=== PATIENT | female | born 1990 | race African-American/Black ===

== ENCOUNTER 2016-11-30 13:16 | Emergency (ER) | payer BC, MEDICAID ==
[~2016-11-30] VITALS: Ht 160 cm; Wt 52.2 kg
[~2016-11-30 13:16] MED LIST: ATIVAN0.5 MG ORAL; IBUPROFEN800 MG PO; MYLANTA30 M1 GT; NKM; NORCO 5-325 TA1 EACH ORAL; OMEPRAZOLE40 M1 ORAL; PREDNISONE20 MG ORAL
[2016-11-30 14:21] LABS: APPEARANCE,URINE CLEAR; KETONES,URINE NEGATIVE (NEGATIVE); LEUKOCYTE ESTERASE ,URINE 1+ (NEGATIVE); NITRITE,URINE NEGATIVE (NEGATIVE); PH,URINE 6.5 (4.5-8.0); PROTEIN,URINE NEGATIVE (NEGATIVE); UROBILINOGEN,URINE NORMAL MG/DL (0.0-1.0)
[2016-11-30 14:30] LABS: BACTERIA,URINE FEW /HPF; RBC,URINE 0-2 /HPF (0 - 2); SQUAMOUS EPITHELIAL CELL,UR FEW /LPF (NONE/OCC)
[2016-11-30 14:31] LABS: MUCUS,URINE FEW /LPF (NONE/OCC)
--- NOTE | 2016-11-30 14:54 | Emergency Room Report ---
History of Present Illness General Chief Complaint: Pelvic Pain Source: Patient Present Illness HPI 25-year-old female presents ED complaining of lower pelvic pain in back pain. States that her last 4 years she has had right lower pelvic pain ever since having a . States the pain is intermittent and comes and goes. Was told that everything was okay in the past. Pain is currently throbbing, 8/10. Nonradiating. Patient also complaining of some back pain x 3 days. denies trauma. 7/10 back pain, throbbing, radiating down the right leg. Denies any motor or leg weakness. Denies any bowel or bladder incontinence. No other aggravating relieving factors. Denies any other assocaited symptoms Allergies: Coded Allergies: No Known Allergies (Unverified , 04/26/13) Patient History Past Medical History: asthma, GERD Past Surgical History: none Pertinent Family History: none Social History: Denies: alcohol use, drug use, smoking Last Menstrual Period: 11/18/16 Now: No Immunizations: UTD Reviewed Nursing Documentation: PMH: Agreed, PSxH: Agreed Nursing Documentation-PMH Past Medical History: No History, Except For Hx Asthma: Yes Hx Gastrointestinal Problems: Yes - heartburn Review of Systems All Other Systems: negative except mentioned in HPI Physical Exam Vital Signs Date Time Temp Pulse Resp B/P Pulse Ox O2 Delivery O2 Flow Rate FiO2 11/30/16 13:47 98.2 77 16 118/71 100 Room Air Sp02 EP Interpretation: reviewed, normal General Appearance: no apparent distress, alert, GCS 15, non-toxic Head: normocephalic Eyes: bilateral eye PERRL, bilateral eye normal inspection ENT: normal ENT inspection Neck: normal inspection Respiratory: normal inspection Cardiovascular #1: normal inspection Gastrointestinal: normal bowel sounds, soft, non-distended, no guarding, no rebound Rectal: deferred Genitourinary: no CVA tenderness Musculoskeletal: other - paraspinal lumbar tenderness Neurologic: alert, oriented x3, responsive, motor strength/tone normal, sensory intact, speech normal Psychiatric: normal inspection Skin: normal inspection Lymphatic: normal inspection Medical Decision Making Diagnostic Impression: Primary Impression: Ovarian cyst ER Course Hospital Course 25-year-old F presents to ED with R adnexal pain Differential diagnosis includes- cystitis, UTI, constipation, ovarian cyst/ torsion Clinical course Patient placed on stretcher. After initial history and physical I ordered UA, Pelvic US Labs - UA unremarkable (-) Pelvic US - bilateral ovarian cyst, + free fluid. good flow to ovary noted Reassurance given to patient. will give referral to OBGYN I feel this is a highly complex case requiring extensive working including EKG/ Rhythm strip, Xray/CT/US, Blood/urine lab work, repeat exams while in ED, and administration of strong opiates/narcotics for pain control, admission to hospital or close patient follow up. Diagnosis - ovarian cyst Stable and discharged to home with Rx Motrin. Followup with OBGYN. Return to ED if symptoms recur or worsen Labs Test 11/30/16 14:00 Urine Color Pale yellow Urine Appearance Clear Urine pH 6.5 (4.5-8.0) Urine Specific [place] 1.015 (1.005-1.035) Urine Protein Negative (NEGATIVE) Urine Glucose (UA) Negative (NEGATIVE) Urine Ketones Negative (NEGATIVE) Urine Occult Blood Negative (NEGATIVE) Urine Nitrite Negative (NEGATIVE) Urine Bilirubin Negative (NEGATIVE) Urine Urobilinogen Normal MG/DL (0.0-1.0) Urine Leukocyte Esterase 1+ (NEGATIVE) Urine RBC 0-2 /HPF (0 - 2) Urine WBC 2-4 /HPF (0 - 2) Urine Squamous Epithelial Cells Few /LPF (NONE/OCC) Urine Bacteria Few /HPF (NONE) Urine Mucus Few /LPF (NONE/OCC) Urine HCG, Qualitative Negative CT/MRI/US Diagnostic Results CT/MRI/US Diagnostic Results : Imaging Test Ordered: Pelvic US Impression bilateral ovarian cysts. free fluid noted. good blood flow to both ovaries Last Vital Signs Date Time Temp Pulse Resp B/P Pulse Ox O2 Delivery O2 Flow Rate FiO2 11/30/16 13:47 98.2 77 16 118/71 100 Room Air Status: improved Disposition: HOME, SELF-CARE Condition: Stable Scripts Ibuprofen* (MOTRIN*) 600 Mg Tablet 600 MG ORAL Q8H Y for For Pain, #30 TAB 0 Refills Prov: JAMIE LEOS M.D. 11/30/16 Referrals: [facility]/,REFERRING (PCP) JAMIE LEOS M.D. November 30, 2016 14:54
[2016-11-30 15:30] VITALS: BP 121/73
[2016-11-30] MEDS ORDERED: IBUPROFEN600 MG ORAL (15:36)
[2016-11-30 15:43] VITALS: BP 121/73
--- NOTE | 2016-12-01 10:45 | Diagnostic Imaging Report ---
Indication: ABD PAIN, right lower quadrant pain, negative urine test Technique: Transabdominal and transvaginal Comparison: None Findings: Uterus measures 7.4 cm length by 3.5 cm AP. Endometrium measures 8 mm thick. No myometrial abnormality. Right ovary measures 2.4 cm length. Left ovary 3.3 cm length. Dominant follicle is seen on both sides. No adnexal mass. Small amount of free cul-de-sac fluid is noted. Impression: Essentially unremarkable exam. Small amount of free cul-de-sac fluid is presumed physiologic
== END 2016-11-30 15:43 | disposition home or self-care (01) ==
LOC: EMR 14:15
DX: N83.202 Unspecified ovarian cyst, left side (principal); N83.201 Unspecified ovarian cyst, right side; R10.2 Pelvic and perineal pain; J45.909 Unspecified asthma, uncomplicated; K21.9 Gastro-esophageal reflux disease without esophagitis; R12 Heartburn
CPT/HCPCS: 76830; 76856; 81003; 81025; 99283

== ENCOUNTER 2019-02-02 07:00 | Emergency (ER) | payer BC, MEDICAID ==
[~2019-02-02] VITALS: Ht 160 cm; Wt 54.4 kg
[~2019-02-02 07:00] MED LIST changes: +IBUPROFEN600 MG ORAL
[2019-02-02 07:10] VITALS: BP 114/69
--- NOTE | 2019-02-02 07:10 | NUR ---
ED Nurse Note: pt walked in to ED due to asthma attack since yesterday. dry cough noted. per pt, inhaler did not help. no fever or chills reported. respirations even and non-labored noted. muscle pain c/o when she cough. wheezing noted on upper lobes. on vascular specialists. skin warm to touch. no open wound noted. will wait for the further order.
[2019-02-02] MEDS ORDERED: ALBUTEROL2.5 MG/3 M INH (07:14)
[2019-02-02] MEDS ORDERED: Solu-MEDROL 125mg Inj IVP ONE (07:15)
[2019-02-02] MEDS ORDERED: ALBUTEROL SULF8.5 GM INH (07:17)
[2019-02-02] MEDS ORDERED: PREDNISONE20 MG ORAL (07:17)
--- NOTE | 2019-02-02 07:17 | Emergency Room Report ---
History of Present Illness General Chief Complaint: Asthma Source: Patient Present Illness HPI 28-year-old female history of asthma, presents with shortness of breath, wheezing started 1 day prior to arrival, no aggravating factors, alleviated by her inhaler, no chest pain, no abdominal pain, no fever no chills, she does endorse a cough, no dysuria, patient presents for evaluation severity is moderate Allergies: Coded Allergies: No Known Allergies (Unverified , 04/26/13) Patient History Past Medical History: see triage record Last Menstrual Period: 01/06/19 Now: No Reviewed Nursing Documentation: PMH: Agreed; PSxH: Agreed Nursing Documentation-PMH Hx Asthma: Yes Hx Gastrointestinal Problems: Yes - heartburn Review of Systems Constitutional: Denies: chills, fever Eye: Denies: blurred vision, double vision ENT: Denies: throat pain, nasal discharge Respiratory: Reports: cough, shortness of breath, wheezing Cardiovascular: Denies: chest pain, palpitations Gastrointestinal: Denies: abdominal pain, diarrhea, nausea, vomiting Genitourinary: Denies: dysuria, pain Musculoskeletal: Denies: back pain, muscle pain Skin: Denies: rash, lesions Neurological: Denies: headache, focal weakness Hematologic/Lymphatic: Denies: easy bleeding, easy bruising All Other Systems: negative except mentioned in HPI Physical Exam Vital Signs Date Time Temp Pulse Resp B/P (MAP) Pulse Ox O2 Delivery O2 Flow Rate FiO2 02/02/19 07:08 98.2 102 21 112/72 (85) 99 Room Air Sp02 EP Interpretation: reviewed, normal General Appearance: well appearing, no apparent distress, alert Head: normocephalic, atraumatic Eyes: bilateral eye PERRL, bilateral eye EOMI ENT: uvula midline, moist mucus membranes Neck: supple, thyroid normal, supple/symm/no masses Respiratory: lungs clear, no retraction, no accessory muscle use, wheezing - moderate Cardiovascular #1: normal peripheral pulses, regular rate, rhythm, no edema, no gallop, no murmur Gastrointestinal: non tender, soft, no guarding, no rebound Musculoskeletal: normal inspection Neurologic: alert, oriented x3 Psychiatric: mood/affect normal Skin: no rash, warm/dry Medical Decision Making Diagnostic Impression: Primary Impression: Asthma attack Additional Impression: Asthma exacerbation ER Course 28-year-old female presents with acute asthma exacerbation, steroids given, fluids given, magnesium given, patient improved significantly, reevaluation 7: 50 AM. Will disposition patient home with return precautions steroids Follow up with PCP, Rhythm Strip Diag. Results Rhythm Strip Time: 08:00 EP Interpretation: yes Rate: 67 Rhythm: NSR, no PVC's, no ectopy Chest X-Ray Diagnostic Results Chest X-Ray Diagnostic Results : Chest X-Ray Ordered: Yes # of Views/Limited/Complete: 1 View Indication: Shortness of Breath EP Interpretation: Yes Interpretation: no consolidation, no effusion, no pneumothorax, no acute cardiopulmonary disease Impression: No acute disease Electronically Signed by: Nguyễn Ta MD Last Vital Signs Date Time Temp Pulse Resp B/P (MAP) Pulse Ox O2 Delivery O2 Flow Rate FiO2 02/02/19 07:08 98.2 102 21 112/72 (85) 99 Room Air Disposition: HOME, SELF-CARE Condition: Stable Scripts Albuterol Sulfate* (ALBUTEROL SULFATE MDI*) 8.5 Gm Hfa.aer.ad 2 PUFF INH Q4H PRN for cough/wheezing, #1 EA 0 Refills Prov: Nguyễn Ta MD 02/02/19 Prednisone* (PREDNISONE*) 20 Mg Tablet 40 MG ORAL DAILY, #8 TAB Prov: Nguyễn Ta MD 02/02/19 Referrals: [facility] Patient Instructions: Asthma, Adult Additional Instructions: The patient was provided with discharge instructions, notified to follow-up with a primary care doctor and or specialist in the next 24-48 hours, and to return to the ED if they have worsening of their symptoms. Please note that this report is being documented using in3Dgallery technology. This can lead to erroneous entry secondary to incorrect interpretation by the dictating instrument. Nguyễn Ta MD Feb 02, 2019 07:17
[2019-02-02] MEDS: Albuterol ud Inhalation HHN SCH ×3 (07:31→08:03)
[2019-02-02] MEDS: Ipratropium 0.02% Inh Soln 2.5ml UD HHN SCH ×3 (07:31→08:03)
--- NOTE | 2019-02-02 07:46 | NUR ---
ED Nurse Note: Received verbal order from Dr Ta to run Magnesium 2g over 30 minutes. DOUGLAS Toure notified.
--- NOTE | 2019-02-02 08:28 | NUR ---
ED Nurse Note: will discharge pt after urine sample collect.
[2019-02-02 08:51] VITALS: BP 108/71
--- NOTE | 2019-02-02 08:52 | NUR ---
ER DISCHARGE NOTE: Patient is cleared to be discharged per ERMD, pt is aox4, on room air, with stable vital signs. pt was given dc and prescription instructions, pt was able to verbalize understanding, pt id band and iv site removed without complications. pt is able to ambulate with steady gait. pt took all belongings.
--- NOTE | 2019-02-02 09:03 | Diagnostic Imaging Report ---
Indication: Cough Technique: One view of the chest Comparison: 05/05/2010 Findings: Lungs and pleural spaces are clear. Heart size is normal. 6 no significant interim change Impression: No acute process
== END 2019-02-02 08:53 | disposition home or self-care (01) ==
LOC: EMR 07:15
DX: J45.901 Unspecified asthma with (acute) exacerbation (principal)
CPT/HCPCS: 71045; 81025; 94640; 94664; 96365; 96366; 96375; 99284; J2930

== ENCOUNTER 2019-03-28 13:19 | Emergency (ER) | payer MEDICAID ==
[~2019-03-28] VITALS: Ht 160 cm; Wt 50.8 kg
[~2019-03-28 13:19] MED LIST changes: +ALBUTEROL SULF8.5 GM INH; +ALBUTEROL2.5 MG/3 M INH; +ATROVENT HFA12.9 GM IH
[2019-03-28 13:45] VITALS: BP 120/76
--- NOTE | 2019-03-28 13:45 | NUR ---
ED Nurse Note: Pt is AAOx4, vss with no acute distress. Pt c/o unable to hold down any foods today. Pt visited here last night for asthma with c/o bad headache. Pt states her breathing also feels uncomfortable.
--- NOTE | 2019-03-28 14:05 | Emergency Room Report ---
History of Present Illness General Chief Complaint: Nausea Source: Patient Present Illness HPI Disclaimer: Please note that this report is being documented using DRAGON technology. This can lead to erroneous entry secondary to incorrect interpretation by the dictating instrument. HPI: 28-year-old female with a history of asthma presents for evaluation of abdominal pain and vomiting. Symptoms have been present probably 1 day. She was seen in the emergency department last night for an asthma exacerbation and discharged home with an albuterol inhaler and prednisone. This morning, she began to experience significant vomiting, nonbilious. She notes some blood- streaked mucus but no mauricio hemoptysis. Denies any fevers, chills, URI symptoms. Has a persistent cough and wheezing. She has not been able to take her prednisone this morning as she has not been able to hold anything down. She believes the blood in the mucus may also be from a nosebleed she had earlier this morning which is now resolved. She has chronic nosebleeds and follows with ENT. Denies any lower pelvic pain, dysuria, hematuria, vaginal bleeding, vaginal discharge. LMP 3 weeks ago. Denies abdominal pain when she is not vomiting. PMH: Asthma PSH: Denies Allergies: None Social Hx: Smokes marijuana Allergies: Coded Allergies: No Known Allergies (Unverified , 04/26/13) Patient History Last Menstrual Period: 9-5 Now: No Nursing Documentation-PMH Past Medical History: No History, Except For Hx Asthma: Yes Hx Gastrointestinal Problems: Yes - heartburn Review of Systems All Other Systems: negative except mentioned in HPI Physical Exam Vital Signs Date Time Temp Pulse Resp B/P (MAP) Pulse Ox O2 Delivery O2 Flow Rate FiO2 03/28/19 13:26 97.2 88 20 113/79 (90) 88 Room Air General: Awake and alert, no acute distress HEENT: NC/AT. EOMI. mucous membranes Cardiovascular: RRR. S1 and S2 normal. No murmur appreciated Resp: Normal work of breathing. Intermittent cough. Scattered wheezes bilaterally. No crackles. Abdomen: Abdomen is soft, nondistended. Nontender, no masses, no rebound Skin: Intact. No abrasions, laceration or rash over the exposed skin MSK: Normal tone and bulk. Moving all extremities. No obvious deformity. Neuro: Awake and alert. Mentating appropriately. Medical Decision Making Diagnostic Impression: Primary Impression: Nausea and vomiting in adult patient Additional Impression: Dehydration ER Course 28-year-old female presents for evaluation of nausea and vomiting since last night. Differential includes was not limited to gastritis, viral syndrome, URI , cholecystitis, pancreatitis, appendicitis, urinary tract infection, pyelonephritis. Likely, this is a viral syndrome given her prodrome of cough in the setting of a recent asthma exacerbation. Overall, she is well-appearing with stable vital signs. We will start IV fluids, check screening labs and provide antiemetics. She continues to have some bilateral wheezing but is declined a breathing treatment at this time thinking that is making her throw up. Disposition depending on patient improvement in lab results. Laboratory Tests Test 03/28/19 14:15 03/28/19 14:30 White Blood Count 13.5 K/UL (4.8-10.8) H Red Blood Count 5.08 M/UL (4.20-5.40) Hemoglobin 14.6 G/DL (12.0-16.0) Hematocrit 43.3 % (37.0-47.0) Mean Corpuscular Volume 85 FL (80-99) Mean Corpuscular Hemoglobin 28.6 PG (27.0-31.0) Mean Corpuscular Hemoglobin Concent 33.6 G/DL (32.0-36.0) Red Cell Distribution Width 12.0 % (11.6-14.8) Platelet Count 217 K/UL (150-450) Mean Platelet Volume 8.8 FL (6.5-10.1) Neutrophils (%) (Auto) % (45.0-75.0) Lymphocytes (%) (Auto) % (20.0-45.0) Monocytes (%) (Auto) % (1.0-10.0) Eosinophils (%) (Auto) % (0.0-3.0) Basophils (%) (Auto) % (0.0-2.0) Neutrophils % (Manual) Pending Lymphocytes % (Manual) Pending Platelet Estimate Pending Platelet Morphology Pending Sodium Level 140 MMOL/L (136-145) Potassium Level 3.6 MMOL/L (3.5-5.1) Chloride Level 105 MMOL/L (98-107) Carbon Dioxide Level 22 MMOL/L (21-32) Anion Gap 13 mmol/L (5-15) Blood Urea Nitrogen 11 mg/dL (7-18) Creatinine 0.5 MG/DL (0.55-1.30) L Estimate Glomerular Filtration Rate > 60 mL/min (>60) Glucose Level 90 MG/DL (74-106) Calcium Level 9.4 MG/DL (8.5-10.1) Total Bilirubin 0.4 MG/DL (0.2-1.0) Aspartate Amino Transferase (AST) 12 U/L (15-37) L Alanine Aminotransferase (ALT) 15 U/L (12-78) Alkaline Phosphatase 50 U/L (46-116) Total Protein 8.3 G/DL (6.4-8.2) H Albumin 4.2 G/DL (3.4-5.0) Globulin 4.1 g/dL Albumin/Globulin Ratio 1.0 (1.0-2.7) Lipase 134 U/L (73-393) Urine Color Yellow Urine Appearance Slightly cloudy Urine pH 6 (4.5-8.0) Urine Specific [place] 1.020 (1.005-1.035) Urine Protein 2+ (NEGATIVE) H Urine Glucose (UA) Negative (NEGATIVE) Urine Ketones 4+ (NEGATIVE) H Urine Blood Negative (NEGATIVE) Urine Nitrite Negative (NEGATIVE) Urine Bilirubin Negative (NEGATIVE) Urine Urobilinogen Normal MG/DL (0.0-1.0) Urine Leukocyte Esterase 1+ (NEGATIVE) H Urine RBC 0-2 /HPF (0 - 2) Urine WBC 2-4 /HPF (0 - 2) Urine Squamous Epithelial Cells Few /LPF (NONE/OCC) Urine Bacteria Few /HPF (NONE) Urine Mucus Moderate /LPF (NONE/OCC) H Urine HCG, Qualitative Negative (NEGATIVE) Reevaluation Time: 15:58 Last Vital Signs Date Time Temp Pulse Resp B/P (MAP) Pulse Ox O2 Delivery O2 Flow Rate FiO2 03/28/19 13:45 98.0 67 18 120/76 97 Room Air Status: improved Reevaluation Impression Labs within normal limits. Ketones in the urine to suggest mild dehydration but no kidney injury and no electrolyte abnormalities. The patient has had no further nausea or vomiting in the emergency department since being treated with Zofran. Will discharge with ODT Zofran and follow-up with her PMD. Discussed reasons to return to the emergency department. She understands and agrees with this treatment plan. Disposition: HOME, SELF-CARE Condition: Improved Scripts Ondansetron Odt* (ZOFRAN ODT*) 4 Mg Tab.rapdis 4 MG BC EVERY 6 HOURS PRN for Nausea & Vomiting, #20 TAB 0 Refills Prov: Adrian Gannon MD 03/28/19 Referrals: [facility],REFERRING (PCP) Adrian Gannon MD Mar 28, 2019 14:05
[2019-03-28 14:48] LABS: APPEARANCE,URINE SLIGHTLY CLOUDY; BILIRUBIN, URINE NEGATIVE (NEGATIVE); GLUCOSE, URINE (UA) NEGATIVE (NEGATIVE); KETONES,URINE 4+ (NEGATIVE); LEUKOCYTE ESTERASE ,URINE 1+ (NEGATIVE); NITRITE,URINE NEGATIVE (NEGATIVE); PH,URINE 6 (4.5-8.0); PROTEIN,URINE 2+ (NEGATIVE); UROBILINOGEN,URINE NORMAL MG/DL (0.0-1.0)
[2019-03-28 14:48] LABS: HEMATOCRIT 43.3 % (37.0-47.0); HEMOGLOBIN 14.6 G/DL (12.0-16.0); MEAN CORPUSCULAR VOLUME 85 FL (80-99); PLATELET COUNT 217 K/UL (150-450); RED BLOOD COUNT 5.08 M/UL (4.20-5.40); WHITE BLOOD COUNT 13.5 K/UL (4.8-10.8)
--- NOTE | 2019-03-28 14:56 | NUR ---
ED Nurse Note: Pt states pain is 0/10 and pt states is no longer nauseous.
[2019-03-28 14:58] LABS: COLOR,URINE YELLOW
[2019-03-28 15:08] LABS: ANION GAP 13 mmol/L (5-15); BLOOD UREA NITROGEN 11 mg/dL (7-18); CALCIUM 9.4 MG/DL (8.5-10.1); CARBON DIOXIDE 22 MMOL/L (21-32); CHLORIDE 105 MMOL/L (98-107); CREATININE 0.5 MG/DL (0.55-1.30); POTASSIUM 3.6 MMOL/L (3.5-5.1); SODIUM 140 MMOL/L (136-145)
[2019-03-28 15:15] LABS: ALANINE AMINOTRANSFERASE 15 U/L (12-78); ALBUMIN 4.2 G/DL (3.4-5.0); ALKALINE PHOSPHATASE 50 U/L (46-116); ASPARTATE AMINO TRANSFERASE 12 U/L (15-37); BILIRUBIN,TOTAL 0.4 MG/DL (0.2-1.0)
[2019-03-28] MEDS ORDERED: ONDANSETRON ODT4 MG BC (15:57)
[2019-03-28 16:09] VITALS: BP 122/78
--- NOTE | 2019-03-28 16:09 | NUR ---
ER DISCHARGE NOTE: Patient is cleared to be discharged per ERMD, pt is aox4, on room air, with stable vital signs. pt was given dc and prescription instructions, pt was able to verbalize understanding, pt id band and iv site removed without complications. pt is able to ambulate with steady gait. pt took all belongings. Pt is stable and condition improved.
== END 2019-03-28 16:09 | disposition home or self-care (01) ==
LOC: EMR 13:49
DX: E86.0 Dehydration (principal); R11.2 Nausea with vomiting, unspecified; J45.909 Unspecified asthma, uncomplicated
CPT/HCPCS: 36415; 80053; 81003; 81025; 83690; 85007; 85025; 96361; 96374; J2405; Z7502; 99284

== ENCOUNTER 2019-06-26 05:33 | Emergency (ER) | payer MEDICAID ==
[~2019-06-26] VITALS: Ht 160 cm; Wt 54.0 kg
[~2019-06-26 05:33] MED LIST changes: +ONDANSETRON ODT4 MG BC
[2019-06-26] MEDS ORDERED: Albuterol ud Inhalation HHN ONE (05:45)
[2019-06-26] MEDS ORDERED: Ipratropium 0.02% Inh Soln 2.5ml UD HHN ONE ×2 (05:45→07:00)
--- NOTE | 2019-06-26 05:47 | Emergency Room Report ---
History of Present Illness General Chief Complaint: To Be Triaged Source: Patient Present Illness HPI This is a 28-year-old female with poorly controlled asthma. She presents with asthma exacerbation. She woke up with shortness of breath. Wheezing. Coughing. Worse with exertion. Better with rest. Her inhalers not helping. She usually comes to the hospital every few months. No intubation. Allergies: Coded Allergies: No Known Allergies (Unverified , 04/26/13) Patient History Past Medical History: see triage record, old chart reviewed Past Surgical History: none Pertinent Family History: none Social History: Denies: smoking Now: No Immunizations: other Reviewed Nursing Documentation: PMH: Agreed; PSxH: Agreed Nursing Documentation-PMH Hx Asthma: Yes Hx Gastrointestinal Problems: Yes - heartburn Review of Systems Eye: Denies: eye pain, blurred vision ENT: Denies: ear pain, nose congestion, throat swelling Respiratory: Reports: cough, shortness of breath, wheezing Cardiovascular: Denies: chest pain, palpitations Gastrointestinal: Denies: abdominal pain, diarrhea, nausea, vomiting Musculoskeletal: Denies: back pain, joint pain Skin: Denies: rash Neurological: Denies: headache, numbness Endocrine: Denies: increased thirst, increased urine Hematologic/Lymphatic: Denies: easy bruising All Other Systems: negative except mentioned in HPI Physical Exam Vitals with tachycardia Sp02 EP Interpretation: reviewed, normal General Appearance: well appearing, no apparent distress, alert Head: normocephalic, atraumatic Eyes: bilateral eye PERRL, bilateral eye EOMI ENT: hearing grossly normal, normal pharynx Neck: full range of motion, supple, no meningismus Respiratory: chest non-tender, respiratory distress, accessory muscle use, wheezing Cardiovascular #1: regular rate, rhythm, no murmur Gastrointestinal: normal bowel sounds, non tender, no mass, no organomegaly, no bruit, non-distended Musculoskeletal: back normal, normal range of motion, gait/station normal Neurologic: alert Psychiatric: mood/affect normal Medical Decision Making Diagnostic Impression: Primary Impression: Asthma exacerbation Qualified Codes: J45.901 - Unspecified asthma with (acute) exacerbation ER Course Patient with asthma exacerbation. No evidence of ACS, PE, dissection to name a few. Breathing treatment and steroid given here. Will reassess after treatment. I will sign this patient out to Dr. Oh for final disposition. Status: improved Disposition: HOME, SELF-CARE Condition: Stable Scripts Oseltamivir Phosphate (Tamiflu) 75 Mg Capsule 75 MG ORAL TWICE A DAY for 5 Days, #10 CAP Prov: Vish Oh MD 06/26/19 Prednisone* (PREDNISONE*) 20 Mg Tablet 40 MG ORAL DAILY, #10 TAB Prov: Vish Oh MD 06/26/19 Albuterol Sulfate* (ALBUTEROL SULFATE MDI*) 8.5 Gm Hfa.aer.ad 2 PUFF INH Q6H, #1 EA 0 Refills Prov: Vish hO MD 06/26/19 Referrals: NON PHYSICIAN (PCP) Damaso Woodruff MD Jun 26, 2019 05:47
--- NOTE | 2019-06-26 05:50 | NUR ---
ED Nurse Note: Patient walked into ER from home d/t SOB and asthma exacerbation. Patient stated she uses albuterol but it has been ineffective today. Symptoms started early this morning. Patient aao x 4 and ambulatory. Wheezing noted on all lobes bilaterally. Patient changed into gown and placed on electronic device monitor. No acute distress at this time.
[2019-06-26 05:55] VITALS: BP 119/71
--- NOTE | 2019-06-26 05:57 | NUR ---
ED Nurse Note: RT at bedside providing breathing treatment.
--- NOTE | 2019-06-26 06:30 | NUR ---
ED Nurse Note: Pt states she is feeling dizzy and lightheaded, KUMAR Woodruff notified. Pt HR is 130 s/p breathing treatment. KUMAR Woodruff stated to observe patient and reassess after 15 min .
[2019-06-26] MEDS ORDERED: Levalbuterol Inh UD 1.25mg/0.5ml HHN ONE (07:00)
--- NOTE | 2019-06-26 07:13 | NUR ---
HAND-OFF: Report given to DOUGLAS Matamoros and endorsed care.
[2019-06-26] MEDS ORDERED: ALBUTEROL SULF8.5 GM INH ×3 (07:34→08:16)
[2019-06-26] MEDS ORDERED: TAMIFLU75 MG ORAL ×3 (07:34→08:16)
[2019-06-26] MEDS ORDERED: PREDNISONE20 MG ORAL ×3 (07:34→08:16)
[2019-06-26 07:45] VITALS: BP 125/76
--- NOTE | 2019-06-26 07:45 | NUR ---
ER DISCHARGE NOTE: Patient is cleared to be discharged per ERMD, pt is aox4, on room air, with stable vital signs. pt was given dc and prescription instructions, pt was able to verbalize understanding, pt id band removed. pt is able to ambulate with steady gait. pt took all belongings.
== END 2019-06-26 07:45 | disposition home or self-care (01) ==
LOC: EMR 05:38
DX: J45.901 Unspecified asthma with (acute) exacerbation (principal)
CPT/HCPCS: J7512; J7644; Z7502; 99284

== ENCOUNTER 2019-07-17 22:08 | Emergency (ER) | payer MEDICAID ==
[~2019-07-17] VITALS: Ht 160 cm; Wt 54.4 kg
[~2019-07-17 22:08] MED LIST changes: +TAMIFLU75 MG ORAL
--- NOTE | 2019-07-17 22:25 | NUR ---
ED Nurse Note: Recieved pt from home, here with c/o asthma exacerbation for past 1 day, pt states she has no machine or meds at home, denies chest pain or any pain, mild wheezes heard on breath sounds, sat = 100%, mild sob noted on exertion, urine sample collected, pt denies any other complaints or discomforts.
--- NOTE | 2019-07-17 22:28 | Emergency Room Report ---
History of Present Illness General Chief Complaint: Asthma Source: Patient Present Illness HPI This is a 28-year-old female with a history of asthma. She presents with complaint of asthma exacerbation. Onset today. She said her son had a cold and the cold weather triggered his asthma. Her inhalers not helping. She was here last month for the same. Not on any steroid inhaler. No intubation. Last steroid use was a month ago. No fever chills. No nausea or vomiting. Worse with exertion and lying flat. Better with rest. Allergies: Coded Allergies: No Known Allergies (Unverified , 04/26/13) Patient History Past Medical History: see triage record, old chart reviewed, asthma Past Surgical History: other Pertinent Family History: none Social History: Denies: smoking Last Menstrual Period: 07/09/19 Now: No : 2 Para: 1 Immunizations: other Reviewed Nursing Documentation: PMH: Agreed; PSxH: Agreed Nursing Documentation-PMH Past Medical History: No History, Except For Hx Cardiac Problems: No Hx Hypertension: No Hx Pacemaker: No Hx Asthma: Yes Hx COPD: No Hx Diabetes: No Hx Cancer: No Hx Gastrointestinal Problems: No Hx Dialysis: No History Of Psychiatric Problem: No Hx Neurological Problems: No Hx Cerebrovascular Accident: No Hx Seizures: No Review of Systems Eye: Denies: eye pain, blurred vision ENT: Denies: ear pain, nose congestion, throat swelling Respiratory: Reports: cough, shortness of breath, wheezing Cardiovascular: Denies: chest pain, palpitations Gastrointestinal: Denies: abdominal pain, diarrhea, nausea, vomiting Musculoskeletal: Denies: back pain, joint pain Skin: Denies: rash Neurological: Denies: headache, numbness Endocrine: Denies: increased thirst, increased urine Hematologic/Lymphatic: Denies: easy bruising All Other Systems: negative except mentioned in HPI Physical Exam Vital Signs Date Time Temp Pulse Resp B/P (MAP) Pulse Ox O2 Delivery O2 Flow Rate FiO2 07/17/19 22:09 97.9 87 19 116/51 (72) 93 Room Air Vitals unremarkable Sp02 EP Interpretation: reviewed, normal General Appearance: well appearing, alert, mild distress Head: normocephalic, atraumatic Eyes: bilateral eye PERRL, bilateral eye EOMI ENT: hearing grossly normal, normal pharynx Neck: full range of motion, supple, no meningismus Respiratory: chest non-tender, respiratory distress - Mild, accessory muscle use, wheezing Cardiovascular #1: regular rate, rhythm, no murmur Gastrointestinal: normal bowel sounds, non tender, no mass, no organomegaly, no bruit, non-distended Musculoskeletal: back normal, normal range of motion, gait/station normal Psychiatric: mood/affect normal Medical Decision Making Diagnostic Impression: Primary Impression: Asthma exacerbation Qualified Codes: J45.901 - Unspecified asthma with (acute) exacerbation ER Course Patient with asthma exacerbation. No evidence of pneumonia, ACS, PE, dissection to name a few. Better after nebulizer treatment and steroids. Much better air movement only very slight wheezing at the bases. Patient does not want any more treatment. Will discharge home. Last Vital Signs Date Time Temp Pulse Resp B/P (MAP) Pulse Ox O2 Delivery O2 Flow Rate FiO2 07/17/19 22:09 97.9 87 19 116/51 (72) 93 Room Air Status: improved Disposition: HOME, SELF-CARE Condition: Stable Scripts Prednisone* (PREDNISONE*) 20 Mg Tablet 40 MG ORAL DAILY, #8 TAB Prov: Damaso Woodruff MD 07/17/19 Patient Instructions: Asthma, Adult Additional Instructions: Follow-up with your doctor in 7 days. Use your Symbicort. Return if symptoms worsen. Damaso Woodruff MD Jul 17, 2019 22:28
[2019-07-17] MEDS ORDERED: Ipratropium 0.02% Inh Soln 2.5ml UD HHN ONE (22:30)
[2019-07-17] MEDS ORDERED: Albuterol ud Inhalation HHN ONE ×2 (22:30→23:00)
[2019-07-17] MEDS ORDERED: PREDNISONE20 MG ORAL (23:03)
[2019-07-17] MEDS ORDERED: ALBUTEROL2.5 MG/3 M HHN (23:03)
--- NOTE | 2019-07-17 23:45 | NUR ---
ER DISCHARGE NOTE: Patient is cleared to be discharged per ERMD, pt is aox4, on room air, with stable vital signs. pt was given dc and prescription instructions, pt was able to verbalize understanding, pt id band removed without complications. pt is able to ambulate with steady gait. pt took all belongings.
[2019-07-17 23:57] VITALS: BP 122/54
== END 2019-07-17 23:55 | disposition home or self-care (01) ==
LOC: EMR 22:27
DX: J45.901 Unspecified asthma with (acute) exacerbation (principal)
CPT/HCPCS: J7512; Z7502; 99284